=== PATIENT | female | born 1955 | race African-American/Black ===

== ENCOUNTER 2017-01-23 18:14 | Emergency (ER) | payer OTHER ==
[2017-01-23] MEDS ORDERED: Acetaminophen 325 MG TAB ONE (20:00)
== END 2017-01-23 20:12 | disposition home or self-care (01) ==
LOC: MADERS 18:14
DX: G44.309 Post-traumatic headache, unspecified, not intractable (principal); V49.49XA Driver injured in collision with other motor vehicles in traffic accident, initial encounter
CPT/HCPCS: 99283

== ENCOUNTER 2017-06-14 11:05 | Outpatient (CLI) | payer OTHER | END 2017-06-14 11:06 | disposition home or self-care (01) | LOC: MADEKG 11:05 | PROVIDERS: ATTEND Family Medicine | DX: R00.2 Palpitations (principal) | CPT/HCPCS: 93005; 93010 ==

== ENCOUNTER 2017-08-23 15:14 | Outpatient (CLI) | payer OTHER ==
--- NOTE | 2017-08-23 15:42 | RAD ---
ABDOMEN ONE VIEW: 08/23/17 HISTORY: Acute suprapubic pain. FINDINGS/IMPRESSION: There is fecal material in the colon. The bowel gas pattern is unremarkable. No suspicious calcificat ions are identified. POS: [facility]
== END 2017-08-23 15:15 | disposition home or self-care (01) ==
LOC: MADLABBHPM 15:14
PROVIDERS: ATTEND Family Medicine
DX: R10.2 Pelvic and perineal pain (principal); R19.5 Other fecal abnormalities
CPT/HCPCS: 74018

== ENCOUNTER 2019-04-19 13:42 | Emergency (ER) | payer OTHER ==
[2019-04-19] MEDS ORDERED: diphenhydrAMINE 25 MG CAP ONE (14:27)
[2019-04-19] MEDS ORDERED: Penicillin V Potassium 250 MG TAB ONE (14:27)
[2019-04-19] MEDS ORDERED: Ketorolac Tromethamine 30 MG/ML VIAL ONE (14:27)
[2019-04-19] MEDS ORDERED: Prochlorperazine 10 MG/2 ML VIAL ONE (14:27)
== END 2019-04-19 14:55 | disposition home or self-care (01) ==
LOC: MADERS 13:42
DX: R51 Headache (principal); K02.9 Dental caries, unspecified; K21.9 Gastro-esophageal reflux disease without esophagitis; G47.00 Insomnia, unspecified; Z79.899 Other long term (current) drug therapy
CPT/HCPCS: 96372; 99283; J0780; J1885; Q0163

== ENCOUNTER 2020-06-28 10:02 | Outpatient (CLI) | payer MEDICARE | END 2020-06-28 10:03 | disposition home or self-care (01) | LOC: MADLAB 10:02 | PROVIDERS: ATTEND Family Medicine | DX: R10.2 Pelvic and perineal pain (principal) | CPT/HCPCS: 76856 ==

== ENCOUNTER 2020-06-30 11:25 | Emergency (ER) | payer MEDICARE ==
[2020-06-30] MEDS ORDERED: Bupivacaine HCl 0.5%/Epinephrine 1:200,000/PF 30 ml Vial ONE (12:35)
[2020-06-30] MEDS ORDERED: Cephalexin 500 MG CAP ONE (13:34)
[2020-06-30] MEDS ORDERED: HYDROcodone/Acetaminophen 10/325 mg Tablet ONE (13:34)
== END 2020-06-30 13:38 | disposition home or self-care (01) ==
LOC: MADERS 11:25
DX: K04.7 Periapical abscess without sinus (principal); K21.9 Gastro-esophageal reflux disease without esophagitis; G47.00 Insomnia, unspecified; Z79.899 Other long term (current) drug therapy; Z85.00 Personal history of malignant neoplasm of unspecified digestive organ; Z86.011 Personal history of benign neoplasm of the brain
CPT/HCPCS: 41800

== ENCOUNTER 2020-11-21 18:31 | Emergency (ER) | payer MEDICARE ==
[2020-11-21 19:46] LABS: ALT (SGPT) 9 U/L (8-55); AST (SGOT) 15 U/L (5-34); Albumin 3.8 g/dL (3.4-4.8); Alkaline Phosphatase 55 U/L (40-110); Anion Gap 14 mmol/L (10-20); BUN (Urea Nitrogen) 15 mg/dL (9.8-20.1); Bilirubin, Total 0.3 mg/dL (0.2-1.2); Calc. Creatinine Clearance 0 mL/min (70-130); Calcium 9.2 mg/dL (7.8-10.44); Carbon Dioxide 26 mmol/L (23-31); Chloride 109 mmol/L (98-107); Glucose 97 mg/dL (80-115); Potassium 4.8 mmol/L (3.5-5.1); Protein, Total 6.8 g/dL (5.8-8.1); Sodium 144 mmol/L (136-145)
[2020-11-21 19:53] LABS: Band 2 % (5-11); Hemoglobin 10.6 g/dL (12.0-16.0); Lymphocytes 53 % (21-51); MDiff Complete? YES; Mean Corpuscular HGB CONC 30.3 g/dL (32.0-36.0); Mean Corpuscular Hemoglobin 26.6 pg (27.0-31.0); Mean Corpuscular Volume 87.8 fL (78.0-98.0); Mean Platelet Volume 9.6 fL (7.4-10.4); Monocytes 10 % (0-10); Neutrophil 35 % (42-75); Platelet Count 271 thou/uL (130-400); Platelet Morphology Comment Appears Adequate; RBC Distribution Width 14.5 % (11.5-14.5); RBC Morphology Normal; White Blood Cell (WBC) Count 5.7 thou/uL (4.8-10.8)
== END 2020-11-21 21:22 | disposition home or self-care (01) ==
LOC: MADERS 18:31
DX: R00.2 Palpitations (principal); K21.9 Gastro-esophageal reflux disease without esophagitis; G47.00 Insomnia, unspecified; Z79.899 Other long term (current) drug therapy; Z85.00 Personal history of malignant neoplasm of unspecified digestive organ; Z86.03 Personal history of neoplasm of uncertain behavior
CPT/HCPCS: 36415; 71045; 80053; 83880; 84484; 85025; 93005

== ENCOUNTER 2021-10-11 17:29 | Outpatient (CLI) | payer MEDICARE ==
[2021-10-11 18:36] LABS: ALT (SGPT) 15 U/L (8-55); AST (SGOT) 16 U/L (5-34); Albumin 4.3 g/dL (3.4-4.8); Alkaline Phosphatase 71 U/L (40-110); Anion Gap 15 mmol/L (10-20); BUN (Urea Nitrogen) 14 mg/dL (9.8-20.1); Bilirubin, Total 0.3 mg/dL (0.2-1.2); Calc. Creatinine Clearance 0 mL/min (70-130); Calcium 9.8 mg/dL (7.8-10.44); Carbon Dioxide 27 mmol/L (23-31); Chloride 109 mmol/L (98-107); Estimated GFR 42; Globulin 3.6 g/dL (2.4-3.5); Glucose 88 mg/dL (80-115); Potassium 5.6 mmol/L (3.5-5.1); Protein, Total 7.9 g/dL (5.8-8.1); Sodium 145 mmol/L (136-145)
[2021-10-11 19:22] LABS: #Basophils 0.1 thou/uL (0.0-0.2); #Eosinphils 0.2 thou/uL (0.0-0.7); #Lymphocytes 2.9 thou/uL (1.20-3.40); #Monocytes 0.5 thou/uL (0.11-0.59); #Neutrophils 2.4 thou/uL (1.40-6.50); %Eosinophils 3.5 % (0.0-10.0); %Lymphocytes 47.9 % (21.0-51.0); %Monocytes 7.8 % (0.0-10.0); %Neutrophils 39.8 % (42.0-75.0); Hemoglobin 11.4 g/dL (12.0-16.0); MDiff Complete? YES; Mean Corpuscular HGB CONC 29.6 g/dL (32.0-36.0); Mean Corpuscular Hemoglobin 24.8 pg (27.0-31.0); Mean Corpuscular Volume 83.8 fL (78.0-98.0); Mean Platelet Volume 10.6 fL (7.4-10.4); Microcytosis SLIGHT = 6-15 cells (100X) (0-5/hpf); Platelet Count 263 thou/uL (130-400); Platelet Morphology Comment Appears Adequate; RBC Distribution Width 14.2 % (11.5-14.5); Red Blood Cell (RBC) Count 4.61 mill/uL (4.20-5.40); White Blood Cell (WBC) Count 5.9 thou/uL (4.8-10.8)
== END 2021-10-11 17:30 | disposition home or self-care (01) ==
LOC: MADLAB 17:29
PROVIDERS: ATTEND Family Medicine
DX: Z00.00 Encounter for general adult medical examination without abnormal findings (principal); R53.83 Other fatigue
CPT/HCPCS: 80053; 84443; 85025

== ENCOUNTER 2021-12-07 16:05 | Outpatient (CLI) | payer OTHER | END 2021-12-07 16:06 | disposition home or self-care (01) | LOC: MADRAD 16:05 | PROVIDERS: ATTEND Family Medicine | DX: R06.00 Dyspnea, unspecified (principal) | CPT/HCPCS: 71046 ==

== ENCOUNTER 2022-04-13 17:33 | Emergency (ER) | payer MEDICARE, OTHER | END 2022-04-13 18:44 | disposition home or self-care (01) | LOC: MADERS 17:33 | DX: S86.811A Strain of other muscle(s) and tendon(s) at lower leg level, right leg, initial encounter (principal); M76.31 Iliotibial band syndrome, right leg; K21.9 Gastro-esophageal reflux disease without esophagitis; G47.00 Insomnia, unspecified; X58.XXXA Exposure to other specified factors, initial encounter; Z79.899 Other long term (current) drug therapy | CPT/HCPCS: 99283 ==

== ENCOUNTER 2022-10-12 14:11 | Emergency (ER) | payer OTHER | END 2022-10-12 15:50 | disposition home or self-care (01) | LOC: MADERS 14:11 | DX: S29.012A Strain of muscle and tendon of back wall of thorax, initial encounter (principal); X58.XXXA Exposure to other specified factors, initial encounter | CPT/HCPCS: 99283 ==

== ENCOUNTER 2025-01-23 15:43 | Emergency (ER) | payer OTHER | END 2025-01-23 16:15 | disposition home or self-care (01) | LOC: MADERS 15:43 | DX: L03.032 Cellulitis of left toe (principal); L73.9 Follicular disorder, unspecified; K21.9 Gastro-esophageal reflux disease without esophagitis; G47.00 Insomnia, unspecified; Z79.899 Other long term (current) drug therapy | CPT/HCPCS: 99283 ==

== ENCOUNTER 2025-02-24 15:23 | Emergency (ER) | payer OTHER ==
[~2025-02-24 15:23] MED LIST: Iopamidol 370 76% 100 ML VIAL ONE
[2025-02-24 17:06] LABS: ALT (SGPT) 9 U/L (Less than 34); AST (SGOT) 21 U/L (11-34); Albumin 4.1 g/dL (3.1-4.5); Alkaline Phosphatase 73 U/L (40-110); Anion Gap 14 mmol/L (10-20); BUN (Urea Nitrogen) 13 mg/dL (9.8-20.1); Bilirubin, Total 0.3 mg/dL (0.3-1.2); Calc. Creatinine Clearance 0 mL/min (70-130); Calcium 8.9 mg/dL (7.8-10.44); Carbon Dioxide 25 mmol/L (23-31); Chloride 109 mmol/L (98-107); Globulin 3.1 g/dL (2.4-3.5); Glucose 96 mg/dL (80-115); Lipase 43 U/L (8-78); Potassium 3.8 mmol/L (3.5-5.1); Sodium 144 mmol/L (136-145)
[2025-02-24 17:10] LABS: Anisocytosis SLIGHT = 6-15 cells (100X) (0-5/hpf); Hematocrit 43.6 % (36.0-47.0); Hemoglobin 12.8 g/dL (12.0-16.0); MDiff Complete? YES; Mean Corpuscular Hemoglobin 25.2 pg (27.0-31.0); Mean Corpuscular Volume 85.9 fl (78.0-98.0); Platelet Adequacy Comment Appears Adequate; Platelet Count 254 10x3/uL (130-400); Red Blood Cell (RBC) Count 5.08 mill/uL (4.20-5.40); White Blood Cell (WBC) Count 5.3 10x3/uL (4.8-10.8)
[2025-02-24 17:12] LABS: Troponin I Less than 0.010 ng/mL (< 0.028)
[2025-02-24 18:42] LABS: Troponin I Less than 0.010 ng/mL (< 0.028)
== END 2025-02-24 19:19 | disposition home or self-care (01) ==
LOC: MADERS 15:23
DX: M54.6 Pain in thoracic spine (principal); R07.89 Other chest pain
CPT/HCPCS: 71045; 71275; 74174; 80053; 83690; 83880; 84484; 85025; 85379; 93005; Q9967